=== PATIENT | female | born 1965 | race Caucasian/White ===

== ENCOUNTER 2020-02-24 11:29 | Emergency (ER) | payer MEDICARE, MEDICAID ==
[~2020-02-24] VITALS: Ht 167.6 cm; Wt 66.2 kg
[~2020-02-24 11:29] MED LIST: BUSPIRONE HCL10 MG PO; FENTANYL PATCH75 MCG TRANSDERM; LEVOTHYROXINE0.2 M1 PO; NORCO 10-325 T1 EACH PO; PROMS25 WY RECTAL; TRINATE TABLET1 TAB PO; VISTARIL 25 MG25 M1 PO; XANAX1 MG PO
[2020-02-24] MEDS ORDERED: DICLOFENAC SOD50 M1 PO (11:48)
[2020-02-24] MEDS ORDERED: TIZANIDINE HCL 22 M1 PO (11:48)
[2020-02-24] MEDS ORDERED: OXYBUTYNIN 5 MG5 M2 PO (11:48)
[2020-02-24] MEDS ORDERED: CYMBALTA30 MG PO (11:48)
[2020-02-24] MEDS ORDERED: TRAZODONE HCL100 MG PO (11:49)
[2020-02-24] MEDS ORDERED: ACYCLOVIR 400400 MG PO (11:49)
[2020-02-24] MEDS ORDERED: CLEOCIN HCL300 MG PO (11:49)
[2020-02-24 13:02] LABS: ABSOLUTE BASOPHILS 0.1 thou/uL (0.0-0.2); ABSOLUTE EOSINOPHILS 0.2 thou/uL (0.0-0.7); ABSOLUTE LYMPHOCYTES 1.8 thou/uL (0.8-5.3); ABSOLUTE MONOCYTES 0.9 thou/uL (0.0-1.2); ABSOLUTE NEUTROPHILS 16.6 thou/uL (1.6-8.1); BASOPHILS 0.4 %; EOSINOPHILS 1.1 %; HEMATOCRIT 43.4 % (37.0-47.0); HEMOGLOBIN 14.7 gm/dL (12.0-15.0); LYMPHOCYTES 9.3 %; MCH 29.8 pg (26.0-34.0); MCHC 33.9 g/dL (28.0-37.0); MONOCYTES 4.7 %; MPV 8.8 fl. (7.2-11.1); NUCLEATED RBCS 0 /100WBC; PLATELET COUNT* 264 thou/uL (150-400); POLYS 84.5 %; RBC 4.94 mil/uL (4.20-5.00); RDW-CV 14.3 % (10.5-14.5); WBC 19.6 thou/uL (4.0-11.0)
[2020-02-24 13:10] LABS: CALCIUM 8.1 mg/dL (8.5-10.1); CREATININE 0.9 mg/dL (0.6-1.3); POTASSIUM 3.4 mmol/L (3.5-5.1)
[2020-02-24 13:15] LABS: ALBUMIN 3.5 g/dL (3.4-5.0); TOTAL BILIRUBIN 0.4 mg/dL (<0.1-1.0); TOTAL PROTEIN 6.9 g/dL (6.4-8.2)
[2020-02-24] MEDS ORDERED: CENTANY30 GM TOP (14:20)
[2020-02-24] MEDS ORDERED: NABUMETONE 750750 M1 PO (14:20)
[2020-02-24] MEDS ORDERED: MAGIC MOUTHWASH SWISH&SPIT (14:20)
[2020-02-24 14:33] VITALS: BP 130/70
== END 2020-02-24 14:34 | disposition home or self-care (01) ==
LOC: M.ERS 11:29
PROVIDERS: Nurse Practitioner Family
DX: L03.211 Cellulitis of face (principal); M79.7 Fibromyalgia; M06.9 Rheumatoid arthritis, unspecified; I10 Essential (primary) hypertension; F17.210 Nicotine dependence, cigarettes, uncomplicated; Z96.643 Presence of artificial hip joint, bilateral; Z90.710 Acquired absence of both cervix and uterus

== ENCOUNTER 2021-04-03 09:39 | Emergency (ER) | payer MEDICARE, MEDICAID ==
[~2021-04-03] VITALS: Ht 170.2 cm; Wt 64.4 kg
[~2021-04-03 09:39] MED LIST changes: +ACYCLOVIR 400400 MG PO; +CENTANY30 GM TOP; +CLEOCIN HCL300 MG PO; +CYMBALTA30 MG PO; +DICLOFENAC SOD50 M1 PO; +MAGIC MOUTHWASH SWISH&SPIT; +NABUMETONE 750750 M1 PO; +OXYBUTYNIN 5 MG5 M2 PO; +TIZANIDINE HCL 22 M1 PO; +TRAZODONE HCL100 MG PO
[2021-04-03] MEDS ORDERED: CLEOCIN HCL300 MG PO (10:39)
[2021-04-03 11:12] VITALS: BP 135/78
== END 2021-04-03 11:13 | disposition home or self-care (01) ==
LOC: M.ERS 09:39
DX: H60.91 Unspecified otitis externa, right ear (principal); H60.11 Cellulitis of right external ear; M06.9 Rheumatoid arthritis, unspecified; I10 Essential (primary) hypertension; F17.210 Nicotine dependence, cigarettes, uncomplicated; Z79.899 Other long term (current) drug therapy; Z90.710 Acquired absence of both cervix and uterus